=== PATIENT | male | born 1950 | race African-American/Black ===

== ENCOUNTER 2018-10-23 00:07 | Emergency (ER) | payer MEDICAID, OTHER ==
[~2018-10-23] VITALS: Ht 160 cm; Wt 72.6 kg
[~2018-10-23 00:07] MED LIST: VICODIN 5-5001 EACH PO
[2018-10-23] MEDS ORDERED: Morphine Sulfate 4mg/ml Inj (IV USE ONLY) IVP ONE (00:15)
[2018-10-23 00:20] VITALS: BP 135/77
--- NOTE | 2018-10-23 00:23 | Emergency Room Report ---
History of Present Illness General Chief Complaint: Multiple Trauma/Fall Source: Patient Present Illness HPI The patient is running for bus. He tripped and landed on his right side. He's unable to use his right arm at this time because of shoulder pain. He also banged his right knee. There is no loss of consciousness. The pain is significant and does not radiate. He has a slight amount of numbness in the hand. Patient rates the pain 7/10 and aching and worsened when he tries to move his arm. The patient is a dialysis patient. He has a vascular access in the left chest. His dialysis is Sunday. He still makes urine. No fevers, chills, weakness, nausea, vomiting, diarrhea or other joint pain. Allergies: Coded Allergies: PENICILLINS (Verified Allergy, Unknown, 06/20/11) Patient History Past Medical History: see triage record Past Surgical History: other - shunt Social History: Denies: smoking Social History Narrative at home Reviewed Nursing Documentation: PMH: Agreed; PSxH: Agreed Nursing Documentation-PMH Past Medical History: No History, Except For Hx Hypertension: Yes Hx Diabetes: Yes Review of Systems All Other Systems: negative except mentioned in HPI Physical Exam Vital Signs Date Time Temp Pulse Resp B/P (MAP) Pulse Ox O2 Delivery O2 Flow Rate FiO2 10/23/18 00:06 98.4 84 18 135/77 98 Room Air Sp02 EP Interpretation: reviewed, normal General Appearance: well appearing, no apparent distress, GCS 15 Head: normocephalic, atraumatic Eyes: bilateral eye normal inspection, bilateral eye PERRL, bilateral eye EOMI ENT: moist mucus membranes Neck: supple Respiratory: lungs clear, normal breath sounds, other - L shunt Cardiovascular #1: regular rate, rhythm Cardiovascular #2: 2+ radial (R) - Good capillary refill Gastrointestinal: normal inspection, normal bowel sounds, non tender, no mass, non-distended, overweight Musculoskeletal: back normal, gait/station normal, normal range of motion, swelling - Right shoulder, other - I knee without abrasion and ligaments stable 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 Right knee is also tender to palpation but range of motion is fairly normal crepitance and ligaments are stable. Neurologic: alert, oriented x3, motor strength/tone normal, DTRs symmetric, sensory intact, cerebellar normal, speech normal Psychiatric: mood/affect normal Skin: normal inspection, warm/dry Medical Decision Making Diagnostic Impression: Primary Impression: Fall Qualified Codes: W19.XXXA - Unspecified fall, initial encounter Additional Impressions: Shoulder fracture, right Qualified Codes: S42.91XA - Fracture of right shoulder girdle, part unspecified, initial encounter for closed fracture ESRD (end stage renal disease) on dialysis ER Course Dialysis patient with a ground-level fall onto his shoulder. Differential includes fracture, contusion versus strain. X-rays are indicated. Because patient is a dialysis patient we will also be evaluated with EKG, chest x-ray and labs. The patient will receive Zofran and morphine. EKG without injury. Chest x-ray no infiltrates. Shoulder film with fracture and humeral head. CBC and CMP unremarkable. Difficult IV stick. Patient requests pill. Percocet given. Sling applied by tech and myself. Position good and neurovasc normal. Numbness resolved. Patient stable for outpatient observation and treatment. Laboratory Tests Test 10/23/18 00:36 White Blood Count 11.6 K/UL (4.8-10.8) H Red Blood Count 3.46 M/UL (4.70-6.10) L Hemoglobin 10.0 G/DL (14.2-18.0) L Hematocrit 31.1 % (42.0-52.0) L Mean Corpuscular Volume 90 FL (80-99) Mean Corpuscular Hemoglobin 29.0 PG (27.0-31.0) Mean Corpuscular Hemoglobin Concent 32.2 G/DL (32.0-36.0) Red Cell Distribution Width 14.3 % (11.6-14.8) Platelet Count 151 K/UL (150-450) Mean Platelet Volume 9.3 FL (6.5-10.1) Neutrophils (%) (Auto) 77.7 % (45.0-75.0) H Lymphocytes (%) (Auto) 15.1 % (20.0-45.0) L Monocytes (%) (Auto) 5.1 % (1.0-10.0) Eosinophils (%) (Auto) 1.0 % (0.0-3.0) Basophils (%) (Auto) 1.0 % (0.0-2.0) Prothrombin Time 10.2 SEC (9.30-11.50) Prothrombin Time INR 1.0 (0.9-1.1) PTT 23 SEC (23-33) Sodium Level 141 MMOL/L (136-145) Potassium Level 4.9 MMOL/L (3.5-5.1) Chloride Level 103 MMOL/L (98-107) Carbon Dioxide Level 24 MMOL/L (21-32) Anion Gap 14 mmol/L (5-15) Blood Urea Nitrogen 49 mg/dL (7-18) H Creatinine 10.9 MG/DL (0.55-1.30) H Estimate Glomerular Filtration Rate 5.7 mL/min (>60) Glucose Level 170 MG/DL (74-106) H Calcium Level 8.3 MG/DL (8.5-10.1) L Total Bilirubin 0.2 MG/DL (0.2-1.0) Aspartate Amino Transferase (AST) 8 U/L (15-37) L Alanine Aminotransferase (ALT) 16 U/L (12-78) Alkaline Phosphatase 75 U/L (46-116) Total Protein 7.9 G/DL (6.4-8.2) Albumin 3.5 G/DL (3.4-5.0) Globulin 4.4 g/dL Albumin/Globulin Ratio 0.8 (1.0-2.7) L EKG Diagnostic Results Rate: normal Rhythm: NSR ST Segments: no acute changes Rhythm Strip Diag. Results EP Interpretation: yes Rhythm: NSR, no PVC's, no ectopy Chest X-Ray Diagnostic Results Chest X-Ray Diagnostic Results : Chest X-Ray Ordered: Yes # of Views/Limited/Complete: 1 View Indication: Other EP Interpretation: Yes Interpretation: no consolidation, no effusion, no pneumothorax, other - vasc access Impression: Other Electronically Signed by: Electronically signed by Lalito Taveras MD Other X-Ray Diagnostic Results Other X-Ray Diagnostic Results : X-Ray ordered: R shoulder # of Views/Limited Vs Complete: 3 View Indication: Pain EP Interpretation: Yes Interpretation: no dislocation, other - STS and fx Impression: Other Electronically Signed by: Electronically signed by Lalito Taveras MD Last Vital Signs Date Time Temp Pulse Resp B/P (MAP) Pulse Ox O2 Delivery O2 Flow Rate FiO2 10/23/18 02:20 98.2 72 18 140/77 98 Room Air Status: improved Disposition: HOME, SELF-CARE Condition: Improved Scripts Lactulose (LACTULOSE*) 20 Gm/30 Ml Solution 30 ML ORAL BID, #240 ML 0 Refills Prov: Lalito Taveras MD 10/23/18 Acetaminophen (Tylenol) 325 Mg Tablet 650 MG ORAL Q6H PRN for Prn Pain/Headache/Temp > 101, #20 TAB 0 Refills Prov: Lalito Taveras MD 10/23/18 Hydrocodone Bit/Acetaminophen 5-325* (NORCO 5-325*) 1 Each Tablet 1 TAB ORAL Q6H PRN for For Pain, #14 TAB 0 Refills Prov: Lalito Taveras MD 10/23/18 Lalito Taveras MD Oct 23, 2018 00:23
[2018-10-23 00:59] LABS: HEMATOCRIT 31.1 % (42.0-52.0); LYMPHOCYTES % (AUTO) 15.1 % (20.0-45.0); MEAN CORPUSCULAR VOLUME 90 FL (80-99); MONOCYTES % (AUTO) 5.1 % (1.0-10.0); NEUTROPHILS % (AUTO) 77.7 % (45.0-75.0); PLATELET COUNT 151 K/UL (150-450); RED BLOOD COUNT 3.46 M/UL (4.70-6.10); RED CELL DISTRIBUTION WIDTH 14.3 % (11.6-14.8); WHITE BLOOD COUNT 11.6 K/UL (4.8-10.8)
[2018-10-23] MEDS ORDERED: oxyCODONE HCL/Acetaminophen 5/325mg ORAL ONE (01:00)
[2018-10-23 01:01] LABS: ANION GAP 14 mmol/L (5-15); BLOOD UREA NITROGEN 49 mg/dL (7-18); CALCIUM 8.3 MG/DL (8.5-10.1); CARBON DIOXIDE 24 MMOL/L (21-32); CHLORIDE 103 MMOL/L (98-107); CREATININE 10.9 MG/DL (0.55-1.30); POTASSIUM 4.9 MMOL/L (3.5-5.1); SODIUM 141 MMOL/L (136-145)
[2018-10-23 01:06] LABS: ALANINE AMINOTRANSFERASE 16 U/L (12-78); ALBUMIN 3.5 G/DL (3.4-5.0); ALBUMIN/GLOBULIN RATIO 0.8 (1.0-2.7); ALKALINE PHOSPHATASE 75 U/L (46-116); ASPARTATE AMINO TRANSFERASE 8 U/L (15-37); BILIRUBIN,TOTAL 0.2 MG/DL (0.2-1.0)
[2018-10-23] MEDS ORDERED: NORCO 5-325 TA1 EACH ORAL (01:54)
[2018-10-23] MEDS ORDERED: TYLENOL325 MG ORAL (01:56)
[2018-10-23] MEDS ORDERED: LACTULOSE20 GM/301 ORAL (01:56)
[2018-10-23 02:20] VITALS: BP 140/77
--- NOTE | 2018-10-23 11:08 | Diagnostic Imaging Report ---
Indication: Right shoulder pain Findings: 3 views of the right shoulder were obtained. There is a fracture of the greater tuberosity of the humerus. Alignment is normal. IMPRESSION: Acute fracture involving the greater tuberosity humerus
--- NOTE | 2018-10-23 11:09 | Diagnostic Imaging Report ---
Indication: Chest pain Comparison: 06/25/2011 A single view chest radiograph was obtained. Findings: Left permacath is noted in good position. Lungs are clear. Cardiac mediastinal silhouette is normal. Bones are osteopenic. IMPRESSION: No acute disease.
--- NOTE | 2018-10-23 14:46 | Cardiology Report ---
APPROVED REPORT EKG Measurement Heart [id number] Normal sinus rhythm Normal ECG
== END 2018-10-23 02:10 | disposition home or self-care (01) ==
LOC: EDBD 00:07 → EMR 00:34
DX: S42.251A Displaced fracture of greater tuberosity of right humerus, initial encounter for closed fracture (principal); W01.0XXA Fall on same level from slipping, tripping and stumbling without subsequent striking against object, initial encounter; Y92.9 Unspecified place or not applicable; I12.0 Hypertensive chronic kidney disease with stage 5 chronic kidney disease or end stage renal disease; E11.22 Type 2 diabetes mellitus with diabetic chronic kidney disease; N18.6 End stage renal disease; Z99.2 Dependence on renal dialysis; Z88.0 Allergy status to penicillin
CPT/HCPCS: 36415; 71045; 80053; 85025; 85610; 85730; 93005; 96374; 96375; 99284

== ENCOUNTER 2019-04-07 13:28 | Emergency (ER) | payer MEDICARE, OTHER ==
[~2019-04-07] VITALS: Ht 170.2 cm; Wt 72.6 kg
[~2019-04-07 13:28] MED LIST changes: +LACTULOSE20 GM/301 ORAL; +NORCO 5-325 TA1 EACH ORAL; +TYLENOL325 MG ORAL
[2019-04-07 13:37] VITALS: BP 135/75
[2019-04-07] MEDS ORDERED: UNOBMED (13:37)
--- NOTE | 2019-04-07 13:38 | NUR ---
ED Nurse Note: Patient walked in to ER from home due to Rt shoulder pain 9/10 radiates to Rt arm. pt aao x4 and ambulatory. skin dry but clean and intact. calm and cooperative. per pt, he injured his Rt arm 2 months ago when he tripped and fell. pt had had a sling but no more. pain has not been resolved. no acute distress noted at this time.
--- NOTE | 2019-04-07 13:40 | NUR ---
ED Nurse Note: pt is dialysis pt. per pt, every M, W, F but he wouldn't go today because of arm pain. he will go tomorrow.
--- NOTE | 2019-04-07 13:49 | NUR ---
ED Nurse Note: ERMD at bedside.
--- NOTE | 2019-04-07 13:54 | NUR ---
ED Nurse Note: pt went down for x-ray in stable condition.
--- NOTE | 2019-04-07 13:55 | Emergency Room Report ---
History of Present Illness General Chief Complaint: Pain Source: Patient, Medical Record Present Illness HPI Patient is a 68 year old who presented for increased pain to the right shoulder. Patient is right hand dominant. Gradual onset of sharp pain worse with movement. No recent falls or trauma. No numbness distally. No prior shoulder injury. No fever. No IVDA. Prior shoulder injury 2 months ago. Did not follow up with orthopedics. Hx of ESRD Allergies: Coded Allergies: PENICILLINS (Verified Allergy, Unknown, 06/20/11) Patient History Past Medical History: see triage record Reviewed Nursing Documentation: PMH: Agreed; PSxH: Agreed Nursing Documentation-PMH Past Medical History: No History, Except For Hx Hypertension: Yes - high cholesterol Hx Diabetes: Yes Hx Dialysis: Yes - MWF Review of Systems All Other Systems: negative except mentioned in HPI Physical Exam Vital Signs Date Time Temp Pulse Resp B/P (MAP) Pulse Ox O2 Delivery O2 Flow Rate FiO2 04/07/19 13:35 98.4 83 18 135/75 (95) 95 Room Air General Appearance: well appearing, no apparent distress, alert, GCS 15, Chronically Ill Head: normocephalic, atraumatic ENT: hearing grossly normal, normal voice Neck: full range of motion, supple Respiratory: no respiratory distress, speaking full sentences Cardiovascular #1: normal inspection, regular rate, rhythm Gastrointestinal: normal inspection Musculoskeletal: no calf tenderness Neurologic: normal inspection, alert, oriented x3, responsive, deck supervisor III-XII nml as tested, normal gait Psychiatric: mood/affect normal Skin: no rash Medical Decision Making Diagnostic Impression: Primary Impression: Shoulder pain, right ER Course Patient presented for shoulder pain. Differential diagnosis included but was not limited to fracture, dislocation, ac separation, myocardial infarction, peptic ulcer disease, septic joint, Among others. Because of patient complexity, imaging studies were ordered. Patient was given pain medications.Patient was noted to have prior history of shoulder fracture. X-ray imaging of the right shoulder showed. Some degenerative changes without an acute fracture. Patient was noted to have prior history of greater tuberosity fracture to the shoulder which is healing well. Patient was advised to follow-up with his primary care physician for physical therapy. Patient will be discharged home. Is given prescription for acetaminophen Last Vital Signs Date Time Temp Pulse Resp B/P (MAP) Pulse Ox O2 Delivery O2 Flow Rate FiO2 04/07/19 13:37 98.4 78 18 135/75 95 Room Air Status: improved Disposition: HOME, SELF-CARE Condition: Stable Jose Kern MD Apr 07, 2019 13:55
--- NOTE | 2019-04-07 14:03 | NUR ---
ED Nurse Note: pt came back from x-ray in stable condition.
--- NOTE | 2019-04-07 14:06 | NUR ---
ED Nurse Note: ERMD at bedside reveiwing x-ray results.
[2019-04-07] MEDS ORDERED: ACETAMINOPHEN500 M3 ORAL (14:10)
[2019-04-07 14:15] VITALS: BP 126/78
--- NOTE | 2019-04-07 14:15 | NUR ---
ED Nurse Note: Pt cleared by health care Provider for discharge after pain patch applied. DC instructions/prescription was given and explained to pt and verbalized understanding of teachings. All medical deviecs such as ID band removed. Pt is AAO x4, ambulatory and left with all personal belongings.
--- NOTE | 2019-04-07 15:54 | Diagnostic Imaging Report ---
Indication: Right shoulder pain Technique: 3 views of the right shoulder Comparison: none Findings: No acute fractures. No dislocations. Joint spaces are preserved Impression: Negative
== END 2019-04-07 14:15 | disposition home or self-care (01) ==
LOC: EMR 14:05
DX: M25.511 Pain in right shoulder (principal); E11.22 Type 2 diabetes mellitus with diabetic chronic kidney disease; I12.0 Hypertensive chronic kidney disease with stage 5 chronic kidney disease or end stage renal disease; N18.6 End stage renal disease; Z99.2 Dependence on renal dialysis; E78.00 Pure hypercholesterolemia, unspecified; Z88.0 Allergy status to penicillin
CPT/HCPCS: 99283

== ENCOUNTER 2019-04-10 19:11 | Inpatient (IN) | payer OTHER ==
[~2019-04-10] VITALS: Ht 182.9 cm; Wt 74.3 kg
[2019-04-10 19:11] VITALS: BP 149/84
[~2019-04-10 19:11] MED LIST changes: +ACETAMINOPHEN500 M3 ORAL; +UNOBMED
--- NOTE | 2019-04-10 19:11 | NUR ---
ED Nurse Note: Dialysis patient BIBA with complaints of SOB x 1 week, worsening, Patient placed on BiPAP. setting 15/1 FiO2 50%.
--- NOTE | 2019-04-10 19:11 | NUR ---
ED Nurse Note: LAST DYALYSIS WAS SUNDAY.
[2019-04-10 20:07] LABS: BASOPHILS % (AUTO) 1.2 % (0.0-2.0); EOSINOPHILS % (AUTO) 1.6 % (0.0-3.0); HEMOGLOBIN 9.5 G/DL (14.2-18.0); MEAN CORPUSCULAR VOLUME 85 FL (80-99); MONOCYTES % (AUTO) 4.3 % (1.0-10.0); NEUTROPHILS % (AUTO) 84.9 % (45.0-75.0); PLATELET COUNT 144 K/UL (150-450); RED BLOOD COUNT 3.31 M/UL (4.70-6.10); RED CELL DISTRIBUTION WIDTH 12.4 % (11.6-14.8); WHITE BLOOD COUNT 12.6 K/UL (4.8-10.8)
--- NOTE | 2019-04-10 20:15 | NUR ---
ED Nurse Note: Patient tolerated blood draw well, IV started at right AC 22 G. Patient has yet to void, will continue to monitor.
[2019-04-10 21:01] LABS: SODIUM 143 MMOL/L (136-145)
[2019-04-10 21:03] LABS: BILIRUBIN,TOTAL 0.5 MG/DL (0.2-1.0); BLOOD UREA NITROGEN 91 mg/dL (7-18); CALCIUM 8.8 MG/DL (8.5-10.1); CARBON DIOXIDE 17 MMOL/L (21-32); CHLORIDE 107 MMOL/L (98-107); POTASSIUM 6.2 MMOL/L (3.5-5.1)
[2019-04-10 21:04] LABS: ALANINE AMINOTRANSFERASE 16 U/L (12-78); ALBUMIN 3.2 G/DL (3.4-5.0); ALBUMIN/GLOBULIN RATIO 0.6 (1.0-2.7); ALKALINE PHOSPHATASE 63 U/L (46-116); ASPARTATE AMINO TRANSFERASE 24 U/L (15-37); CREATINE KINASE 243 U/L (26-140)
[2019-04-10 21:21] LABS: CKMB 3.7 NG/ML (0.0-3.6)
--- NOTE | 2019-04-10 21:22 | NUR ---
ED Nurse Note: Patient currently resting on BIPAP, breathing is visually better, unlabored, even and without difficulty. Will continue to monitor.
--- NOTE | 2019-04-10 21:26 | Emergency Room Report ---
History of Present Illness General Chief Complaint: Dyspnea/Respdistress Source: Patient Present Illness HPI This patient has a history of end-stage renal disease and is dialysis dependent. He was undergoing an AV fistula placement this week. He states that he missed dialysis because he was having pain in his AV fistula site. This morning he woke up with shortness of breath. He denies recent illness. He denies cough or congestion. Denies fever or chills. He has no other complaints. Allergies: Coded Allergies: PENICILLINS (Verified Allergy, Unknown, 06/20/11) Patient History Past Medical History: see triage record, DM, renal disease, dialysis Social History: Denies: smoking, alcohol use, drug use Reviewed Nursing Documentation: PMH: Agreed; PSxH: Agreed Nursing Documentation-PMH Past Medical History: No History, Except For Hx Hypertension: Yes - high cholesterol Hx COPD: Yes Hx Diabetes: Yes Hx Dialysis: Yes - SHUNT ON LEFT CHEST . DAYS M/W/F Review of Systems All Other Systems: negative except mentioned in HPI Physical Exam Vital Signs Date Time Temp Pulse Resp B/P (MAP) Pulse Ox O2 Delivery O2 Flow Rate FiO2 04/10/19 19:00 90 24 149/84 (105) 96 Non-Rebreather 15.0 04/10/19 20:01 50 Sp02 EP Interpretation: reviewed, abnormal General Appearance: alert, GCS 15, non-toxic, mild distress Head: normocephalic, atraumatic Eyes: bilateral eye normal inspection, bilateral eye PERRL ENT: hearing grossly normal, normal pharynx, no angioedema, normal voice Neck: full range of motion, supple/symm/no masses Respiratory: chest non-tender, respiratory distress, accessory muscle use, crackles, rales Cardiovascular #1: regular rate, rhythm, no edema Gastrointestinal: normal bowel sounds, non tender, soft, no guarding, no rebound, distended Rectal: deferred Musculoskeletal: back normal, gait/station normal, normal range of motion, non- tender Neurologic: alert, oriented x3, responsive, motor strength/tone normal, sensory intact, speech normal Psychiatric: judgement/insight normal, memory normal, mood/affect normal, no suicidal/homicidal ideation Skin: no rash Medical Decision Making Diagnostic Impression: Primary Impression: Pulmonary edema Additional Impressions: Fluid overload Missed dialysis Elevated troponin Hyperkalemia ER Course This patient presents with pulmonary edema and respiratory distress secondary to fluid overload. He missed dialysis today. He is also found to have an elevated potassium at 6.2. Troponin is also elevated but is most likely a demand ischemia related to not getting dialysis. He has no EKG findings other than sinus tachycardia. He was given Lasix IV because he stated that he does make some urine. The dialysis company [facility] was contacted repeatedly for emergency dialysis. The patient was in respiratory distress and was placed on BiPAP. This did relieve his work of breathing. He was given insulin, glucose, albuterol and calcium gluconate for his hyperkalemia. The patient was admitted to the ICU stepdown unit for emergency dialysis and further evaluation and treatment and monitoring. This patient is critically ill. This patient required complex medical decision- making, aggressive intervention, extensive laboratory workup and monitoring. Critical care time: 40 minutes. Laboratory Tests Test 04/10/19 19:45 White Blood Count 12.6 K/UL (4.8-10.8) H Red Blood Count 3.31 M/UL (4.70-6.10) L Hemoglobin 9.5 G/DL (14.2-18.0) L Hematocrit 28.0 % (42.0-52.0) L Mean Corpuscular Volume 85 FL (80-99) Mean Corpuscular Hemoglobin 28.8 PG (27.0-31.0) Mean Corpuscular Hemoglobin Concent 34.1 G/DL (32.0-36.0) Red Cell Distribution Width 12.4 % (11.6-14.8) Platelet Count 144 K/UL (150-450) L Mean Platelet Volume 7.0 FL (6.5-10.1) Neutrophils (%) (Auto) 84.9 % (45.0-75.0) H Lymphocytes (%) (Auto) 8.0 % (20.0-45.0) L Monocytes (%) (Auto) 4.3 % (1.0-10.0) Eosinophils (%) (Auto) 1.6 % (0.0-3.0) Basophils (%) (Auto) 1.2 % (0.0-2.0) Sodium Level 143 MMOL/L (136-145) Potassium Level 6.2 MMOL/L (3.5-5.1) *H Chloride Level 107 MMOL/L (98-107) Carbon Dioxide Level 17 MMOL/L (21-32) L Blood Urea Nitrogen 91 mg/dL (7-18) H Creatinine 20.0 MG/DL (0.55-1.30) H Estimate Glomerular Filtration Rate 2.8 mL/min (>60) Glucose Level 147 MG/DL (74-106) H Calcium Level 8.8 MG/DL (8.5-10.1) Total Bilirubin 0.5 MG/DL (0.2-1.0) Aspartate Amino Transferase (AST) 24 U/L (15-37) Alanine Aminotransferase (ALT) 16 U/L (12-78) Alkaline Phosphatase 63 U/L (46-116) Total Creatine Kinase 243 U/L (26-140) H Creatine Kinase MB 3.7 NG/ML (0.0-3.6) H Creatine Kinase MB Relative Index 1.5 Troponin I 0.175 ng/mL (0.000-0.056) Total Protein 8.2 G/DL (6.4-8.2) Albumin 3.2 G/DL (3.4-5.0) L Globulin 5.0 g/dL Albumin/Globulin Ratio 0.6 (1.0-2.7) L EKG Diagnostic Results Rate: tachycardiac Rhythm: other - S.tachycardia ST Segments: no acute changes Rhythm Strip Diag. Results EP Interpretation: yes Rate: 90's Rhythm: NSR, no PVC's, no ectopy Chest X-Ray Diagnostic Results Chest X-Ray Diagnostic Results : Chest X-Ray Ordered: Yes # of Views/Limited/Complete: 1 View Indication: Shortness of Breath EP Interpretation: Yes Interpretation: other - Diffuse patchy opacities Impression: Other - See above Electronically Signed by: Guera Chaney DO Last Vital Signs Date Time Temp Pulse Resp B/P (MAP) Pulse Ox O2 Delivery O2 Flow Rate FiO2 04/10/19 20:06 102 22 94 Bi-Pap 50 04/10/19 19:11 15.0 04/10/19 19:00 149/84 (105) Status: improved Disposition: ADMITTED INPATIENT Condition: Critical Guera Chaney DO Apr 10, 2019 21:26
--- NOTE | 2019-04-10 21:27 | NUR ---
Spoke with Love (Insurance), gave all necessary information, Advised that we call [facility] three times with no responce. Love states she will work on it and call us back.
[2019-04-10] MEDS ORDERED: Albuterol ud Inhalation HHN ONE (21:30)
[2019-04-10] MEDS ORDERED: Insulin Human Regular 100units/ml 3ml IV ONE (21:30)
[2019-04-10] MEDS ORDERED: Calcium Gluconate 10% 1 GM in NS 110 ML IVPB ONE (21:30)
--- NOTE | 2019-04-10 21:32 | NUR ---
Dr.Tirmizi rose, speaking with .
--- NOTE | 2019-04-10 21:39 | NUR ---
did not accept patient(does not take Alpine)-will admit to .
--- NOTE | 2019-04-10 21:47 | NUR ---
spoke with (patient states thats his doctor)- knows the patient but will not accept [place],
--- NOTE | 2019-04-10 21:52 | NUR ---
spoke with - admit to .
[2019-04-10] MEDS ORDERED: HYDROcodone/Acetamin 5/325 tab ORAL PRN (22:00)
[2019-04-10] MEDS ORDERED: Nitroglycerin 2% oint pkt TOPIC ONE (22:00)
--- NOTE | 2019-04-10 22:12 | NUR ---
Dr.R.Lang rose, is service station attendant, speaking with .
[2019-04-10] MEDS ORDERED: Sodium Polystyrene Sulfonate 15gm Powder ORAL ONE (22:15)
--- NOTE | 2019-04-10 22:22 | NUR ---
ED Nurse Note: Patient resting comfortably, tolerating BiPAP machine readily.
--- NOTE | 2019-04-10 23:06 | NUR ---
ED Nurse Note: cALLED AND GAVE REPORT TO SREEKANTH SLOAN
[2019-04-10 23:23] VITALS: BP 158/72
--- NOTE | 2019-04-10 23:50 | NUR ---
ED Nurse Note: Currently waiting for RT and student recruiter for transport to floor, both have been notified twice of impending transport.
--- NOTE | 2019-04-11 00:08 | NUR ---
ED Nurse Note: Patient transported to floor without incident.
[2019-04-11 00:10] VITALS: BP 147/73
--- NOTE | 2019-04-11 00:10 | NUR ---
NURSE NOTES: Pt arrived with britney dave, and alberto Waters SIDE SEAM TENDER and RT ivana. pt remains stable. pt is alert and oriented times 4 and is able to follow commands. pt vital signs remains stable. pt is on engine monitor showing NSR, no signs symptoms of distress noted. pt was quickly placed on a bipap after transfer, satting at 100%, no signs symptoms of distress. pt bed is low, locked, armed, bed rails up times 3, call light within reach. will proceed with plan of care.
[2019-04-11 04:00] VITALS: BP 143/78
--- NOTE | 2019-04-11 07:00 | NUR ---
NURSE NOTES: FOR HEMODIALYSIS,CALLED [facility] SPOKE TO JANAE.
--- NOTE | 2019-04-11 07:20 | NUR ---
HAND-OFF: Report given to Araceli SLOAN ICU/ SDU. Pt remains stable.
[2019-04-11 08:00] VITALS: BP 151/87
--- NOTE | 2019-04-11 08:01 | NUR ---
NURSE NOTES: Pt received from [facility], awake and alert oriented x4.Afebrile with no acute distress,on BIPAP at 15/5 40% fio2. Peripheral line RFA infiltrate, line discontinue.Dialysis today, seen by DR Young. Left subclavian eli cath and MARIELLE fistula .Able to self repositioned.Abdomen soft and rounded.Will continue to monitor
[2019-04-11] MEDS: Lactulose 20gm/30ml UDC ORAL SCH ×2 (08:30→18:31)
[2019-04-11] MEDS: Heparin 5000 units/ml inj SUBQ SCH ×2 (08:35→21:00)
[2019-04-11] MEDS ORDERED: Pantoprazole Inj IVP SCH (09:00)
[2019-04-11] MEDS ORDERED: Cathflo Alteplase 2mg Inj INJ SCH (10:00)
--- NOTE | 2019-04-11 11:00 | History and Physical Report ---
DATE OF ADMISSION: 04/10/2019 CHIEF COMPLAINT: CHF. HISTORY OF PRESENT ILLNESS: The patient is a 68-year-old male. He has a history of end-stage renal disease, on hemodialysis for the last three years. He recently underwent placement of an AV fistula. He does have a PermCath. He apparently missed his hemodialysis on Sunday because he felt tired and weak. On the day of admission here, he became progressively more short of breath and dyspneic, presented to the emergency room. He was noted to be in pulmonary edema and CHF. He has been placed on BiPAP and is now admitted to a monitored bed. PAST MEDICAL HISTORY: As above. PAST SURGICAL HISTORY: Includes a history of left upper extremity AV fistula. CURRENT MEDICATIONS: Reconciled and reviewed. ALLERGIES: Include penicillin. FAMILY HISTORY: Noncontributory. SOCIAL HISTORY: There is no known history of tobacco, ethanol, or drugs. REVIEW OF SYSTEMS: GENERAL: No fevers or chills. HEENT: No headaches or visual changes. CARDIOPULMONARY: No chest pain. Positive shortness of breath. GASTROINTESTINAL: No nausea or vomiting. GENITOURINARY: No urgency or frequency. MUSCULOSKELETAL: No joint pain or swelling. NEUROLOGIC: No evidence of seizures. PHYSICAL EXAMINATION: VITAL SIGNS: Temperature 98.3, pulse 84, respirations 25, and blood pressure 143/78. GENERAL: The patient is well developed, in no apparent distress. HEART: Regular rate and rhythm. LUNGS: Diminished breath sounds. ABDOMEN: Soft, nontender, and nondistended. EXTREMITIES: Without clubbing, cyanosis, or edema. There is a dressing on the left upper extremity. There is no audible bruit noted. There is a PermCath noted in the chest. LABORATORY DATA: White count was 12, hemoglobin 9, hematocrit 28. Sodium 143, potassium 6.2, chloride 107, bicarb 17, BUN 91, and creatinine 20. Troponin was 0.175. EKG showed normal sinus rhythm without any acute ST-T wave changes. ASSESSMENT: This is a 68-year-old male with a history of hypertension, diabetes, and end-stage renal disease, admitted with complaints of pulmonary edema secondary to missed dialysis. He has an elevated troponin I suspect secondary to his volume overload in combination with his renal failure. PLAN: Continue BiPAP. Urgent hemodialysis has been ordered. We will trend troponins, topical nitrates. Continue outpatient diabetic and cardiac regimen. Jose Luis Young M.D. DR: TERENCE JOB#: [id number] CC:
[2019-04-11] MEDS: NovoLOG Insulin Flexpen SUBQ SCH ×3 (11:30→21:00)
--- NOTE | 2019-04-11 11:45 | Diagnostic Imaging Report ---
Indication: Shortness of breath Technique: One view of the chest Comparison: 10/23/2018 Findings: There are fairly extensive bilateral patchy airspace opacities now present. There is a small left pleural effusion. The heart size is normal. There is a tunneled dialysis catheter again noted Impression: Bilateral extensive patchy infiltrates versus edema.
[2019-04-11 12:00] VITALS: BP 161/88
--- NOTE | 2019-04-11 12:00 | NUR ---
NURSE NOTES: Dialysis done and 3l out, no acute distress, will continue to monitor.Able to self repositioned and consumed 100% at lunch
[2019-04-11] MEDS: Metoprolol Succinate XL 50mg tab ORAL SCH (13:08)
[2019-04-11] MEDS: Losartan 50mg tab ORAL SCH (13:08)
[2019-04-11] MEDS: Aspirin EC 81mg tab ORAL SCH (13:12)
--- NOTE | 2019-04-11 14:36 | NUR ---
CASE MANAGEMENT:REVIEW 68 YR OLD MALE BIBA FROM HOME CC: SOB PMH: MISSED DIALYSIS SI: FLUID OVERLOAD. PULMONARY EDEMA. HYPERKALEMIA 98.5 90 24 149/84 96% ON 15L NON REBREATHER WBC+12.6 K+6.2 BUN+91 CR+20.0 IS: PLACED ON BIPAP @ 50% FIO2 IV LASIX IV INSULIN IV D50W ALBUTEROL HHN IV CA GLUC CHEST XRAY : to step down unit INTERQUAL CRITERIA MET
[2019-04-11 16:00] VITALS: BP 145/77
--- NOTE | 2019-04-11 16:02 | NUR ---
NURSE NOTES: Seen by Dr Lara, with follow up with new order.No acute distress, kept clean and dry, partial bath given.Call light within easy reach,will continue to monitor.Patient oliguric and uses urinal 200cc out
--- NOTE | 2019-04-11 17:45 | Consultation ---
DATE OF CONSULTATION: 04/11/2019 CONSULTING PHYSICIAN: Deonte Lara M.D. REFERRING PHYSICIAN: Jose Luis Young M.D. REASON FOR CONSULTATION: End-stage renal disease and pulmonary edema. HISTORY OF PRESENT ILLNESS: The patient is a 68-year-old male with end-stage renal disease, [facility]. He has had surgery on Sunday this week for I guess revision of AV fistula left arm and his last dialysis was Sunday. He comes in night having missed his dialysis treatment on Sunday with shortness of breath and pulmonary edema, and required BiPAP in the emergency room. The patient denies any chest pain or history of chronic congestive heart failure. He is only a fair historian. PAST SURGICAL HISTORY: AV fistula, left arm and dialysis PermCath. ALLERGIES: Penicillin. HABITS: He has never been a smoker. Alcohol, social. Drugs, none. SOCIAL HISTORY: He lives alone, retired, disabled. SYSTEM REVIEW: HEAD, EYES, EARS, NOSE, AND THROAT: Vision and hearing is good. ENDOCRINE: Long-standing diabetes. No thyroid disease. PULMONARY: No asthma, TB, or chronic cough. CARDIAC: See history of present illness. GASTROINTESTINAL: No GI bleeding, ulcers or abdominal pain. GENITOURINARY: No dysuria or hematuria. NEUROLOGIC: No CVA, syncope or seizures. MUSCULOSKELETAL: Mild generalized arthritis. PHYSICAL EXAMINATION: GENERAL: The patient is alert man, chronically ill-appearing. VITAL SIGNS: Temperature 97.9, pulse 100, and blood pressure 151/87. Pulse oximetry 98%. HEAD, EYES, EARS, NOSE, AND THROAT: There is mild periorbital edema. Sclerae are nonicteric. Throat clear. NECK: No adenopathy. LUNGS: Clear. HEART: Regular rhythm. There is an apical S4. I hear no murmur. ABDOMEN: Soft without organomegaly or masses. EXTREMITIES: Show 1+ edema. AV fistula in the left upper arm with a good thrill. NEUROLOGIC: He is alert and oriented. Cranial nerves are intact. No focal findings. He has difficulty moving about in the bed. PERTINENT LABORATORY DATA: White count 12.6, hemoglobin 9.5. Sodium 143, potassium 6.2, chloride 107, CO2 17, BUN 91, and creatinine 20. Troponin 0.175 with a total CK of 243. EKG shows nonspecific ST-T wave abnormalities. Albumin is low at 3.2. IMPRESSION: 1. End-stage renal disease, status post missed dialysis treatment. 2. Congestive heart failure, likely acute on chronic, likely diastolic dysfunction with pulmonary edema. 3. Hyperkalemia. 4. Azotemia. 5. Troponin bump likely from his renal failure and congestive heart failure, possible ischemia. PLAN: The patient will have serial dialysis for fluid removal and dietary advice, and we will reassess all his medications for end-stage renal disease. Thank you so much for allowing . Deonte Lara M.D. DR: CAROLINA JOB#: [id number] CC:
--- NOTE | 2019-04-11 18:05 | NUR ---
NURSE NOTES: Adls done, consumed 100% at diner. Call light within easy reach, kept clean dry and comfortable
--- NOTE | 2019-04-11 19:45 | NUR ---
NURSE NOTES: received pt from Araceli SLOAN. pt is awake and AOx4. 2L NC is on and O2sat is 97%, pt is resting on the bed, bed is lowest position, alarmed, and locked. Right Iv site 22G is intact, clean, and patent. no dysrythmia reporte from previous shift. call light within reach. will continue to monitor with plan of care.
[2019-04-11 20:00] VITALS: BP 145/71
--- NOTE | 2019-04-11 20:05 | NUR ---
HAND-OFF: Report given to NATHALIA Rosario.
[2019-04-12] VITALS: BP 151/95
[2019-04-12] MEDS: Dyna-Hex 2% Top Sol 2oz TOPIC SCH ×2 (03:35→20:02)
[2019-04-12 04:00] VITALS: BP 146/90
--- NOTE | 2019-04-12 04:20 | NUR ---
NURSE NOTES: called [facility] dialysis company to confirm about 19 dialysis appointment, confirmed with Oscar SLOAN.
[2019-04-12 05:36] LABS: BASOPHILS % (AUTO) 0.6 % (0.0-2.0); EOSINOPHILS % (AUTO) 2.3 % (0.0-3.0); HEMATOCRIT 28.7 % (42.0-52.0); HEMOGLOBIN 9.2 G/DL (14.2-18.0); LYMPHOCYTES % (AUTO) 17.5 % (20.0-45.0); MEAN CORPUSCULAR VOLUME 89 FL (80-99); MONOCYTES % (AUTO) 5.4 % (1.0-10.0); NEUTROPHILS % (AUTO) 74.2 % (45.0-75.0); PLATELET COUNT 168 K/UL (150-450); RED BLOOD COUNT 3.23 M/UL (4.70-6.10); RED CELL DISTRIBUTION WIDTH 13.3 % (11.6-14.8); WHITE BLOOD COUNT 8.7 K/UL (4.8-10.8)
[2019-04-12 05:54] LABS: ANION GAP 18 mmol/L (5-15); BLOOD UREA NITROGEN 65 mg/dL (7-18); CALCIUM 9.1 MG/DL (8.5-10.1); CARBON DIOXIDE 22 MMOL/L (21-32); CHLORIDE 104 MMOL/L (98-107); SODIUM 143 MMOL/L (136-145)
[2019-04-12] MEDS ORDERED: Heparin Sod 1000 units/ml 10ml IV PRN ×2 (06:00→21:00)
[2019-04-12] MEDS ORDERED: Heparin Sod 1000 units/ml 10ml IV SCH (06:15)
[2019-04-12] MEDS: NovoLOG Insulin Flexpen SUBQ SCH ×4 (06:28→20:39)
[2019-04-12] MEDS ORDERED: GlipiZIDE 5mg tab ORAL SCH (06:30)
--- NOTE | 2019-04-12 07:30 | NUR ---
NURSE NOTES: Received patient from NATHALIA oRsario. Patient alert and oriented and sitting up. Patient denies pain or discomfort. Patient on 2L NC. Patient has right wrist 22G PIV and left subclavian permicath for dialysis. Patient has dialysis scheduled for today. [facility] called and notified by previous shift. Patient labs within normal limits this morning. Patient pulled up at this time. Addendum: 04/12/19 at 0871 by Ju Oscar RN Patient showing sinus rhythm on the ekg monitor tech. Dr Young rounded on the patient. Received order to transfer patient to telemetry.
--- NOTE | 2019-04-12 07:49 | NUR ---
HAND-OFF: Report given to Bertrand SLOAN., pt is awake, stable, and no SOB noted.
[2019-04-12 08:00] VITALS: BP 167/80
--- NOTE | 2019-04-12 08:19 | General Progress Note ---
Assessment/Plan Problem List: (1) Pulmonary edema ICD Codes: J81.1 - Chronic pulmonary edema SNOMED: 77004736 (2) Fluid overload ICD Codes: E87.70 - Fluid overload, unspecified SNOMED: 37221554, 609488097, 549289766 (3) Missed dialysis SNOMED: 399861600 Status: stable, progressing Assessment/Plan: Hd with uf antiplt rx o2 Subjective ROS Limited/Unobtainable: No Constitutional: Reports: weakness HEENT: Reports: no symptoms Cardiovascular: Reports: no symptoms Respiratory: Reports: shortness of breath Gastrointestinal/Abdominal: Reports: no symptoms Neurologic/Psychiatric: Reports: no symptoms Endocrine: Reports: no symptoms Hematologic/Lymphatic: Reports: no symptoms Allergies: Coded Allergies: PENICILLINS (Verified Allergy, Unknown, 06/20/11) All Systems: reviewed and negative except above Subjective off bipap. no CP. still with sob. Objective Last 24 Hour Vital Signs Date Time Temp Pulse Resp B/P (MAP) Pulse Ox O2 Delivery O2 Flow Rate FiO2 04/12/19 04:00 98.1 92 18 146/90 (108) 98 04/12/19 04:00 2.0 04/12/19 04:00 Nasal Cannula 2.0 04/12/19 03:50 91 04/12/19 00:00 97.9 90 19 151/95 (113) 98 04/12/19 00:00 2.0 04/12/19 00:00 Nasal Cannula 2.0 04/11/19 23:32 101 04/11/19 20:00 96.8 91 18 145/71 (95) 97 04/11/19 20:00 2.0 04/11/19 20:00 97 Nasal Cannula 2.0 28 04/11/19 20:00 Nasal Cannula 2.0 04/11/19 19:50 91 04/11/19 18:33 88 145/87 04/11/19 16:00 97.8 87 20 145/77 (99) 98 04/11/19 16:00 2.0 04/11/19 16:00 92 04/11/19 16:00 Bi-pap 04/11/19 13:08 98 161/88 04/11/19 13:08 98 161/88 04/11/19 13:08 161/88 04/11/19 12:00 Bi-pap 04/11/19 12:00 97.7 98 24 161/88 (112) 98 04/11/19 12:00 40 04/11/19 12:00 89 Intake and Output 04/11/19 04/12/19 18:59 06:59 Intake Total 340 ml Output Total 3200 ml Balance -2860 ml Intake Oral 340 ml Output Urine Total 200 ml Hemodialysis UF 3000 ml # Voids 1 # Bowel Movements 1 4 Laboratory Tests 04/11/19 10:00: Hemoglobin A1c 6.4H 04/12/19 03:48: White Blood Count 8.7, Red Blood Count 3.23L, Hemoglobin 9.2L, Hematocrit 28.7L , Mean Corpuscular Volume 89, Mean Corpuscular Hemoglobin 28.5, Mean Corpuscular Hemoglobin Concent 32.1, Red Cell Distribution Width 13.3, Platelet Count 168, Mean Platelet Volume 7.3, Neutrophils (%) (Auto) 74.2, Lymphocytes (% ) (Auto) 17.5L, Monocytes (%) (Auto) 5.4, Eosinophils (%) (Auto) 2.3, Basophils (%) (Auto) 0.6, Sodium Level 143, Potassium Level 4.0, Chloride Level 104, Carbon Dioxide Level 22, Anion Gap 18H, Blood Urea Nitrogen 65H, Creatinine 16.0H, Estimat Glomerular Filtration Rate 3.6, Glucose Level 131H, Calcium Level 9.1, Troponin I 0.105H Height (Feet): 6 Height (Inches): 0.00 Weight (Pounds): 163 General Appearance: WD/WN, alert Neck: supple Cardiovascular: normal rate Respiratory/Chest: rhonchi - bilaterally Abdomen: normal bowel sounds, non tender, soft, no organomegaly Edema: no edema noted Arm (L), no edema noted Arm (R), no edema noted Leg (L), no edema noted Leg (R), no edema noted Pedal (L), no edema noted Pedal (R), no edema noted Generalized Jose Luis Young MD Apr 12, 2019 08:19
[2019-04-12] MEDS: Lactulose 20gm/30ml UDC ORAL SCH ×3 (09:00→17:57)
--- NOTE | 2019-04-12 09:00 | NUR ---
NURSE NOTES: Patient receiving hemodialysis at this time. Cardiac medications and heparin held for procedure. Medication will be administered after dialysis. Addendum: 04/12/19 at 1000 by Ju Oscar RN Protonix IV also held due to dialysis. Will be administered post dialysis.
[2019-04-12] MEDS: Aspirin EC 81mg tab ORAL SCH (09:11)
[2019-04-12] MEDS: Metoprolol Succinate XL 50mg tab ORAL SCH (11:14)
[2019-04-12] MEDS: Losartan 50mg tab ORAL SCH (11:15)
[2019-04-12] MEDS: Heparin 5000 units/ml inj SUBQ SCH ×2 (11:19→20:38)
[2019-04-12 12:00] VITALS: BP 149/78
--- NOTE | 2019-04-12 12:00 | NUR ---
NURSE NOTES: Patient resting comfortably with no sign or complaint of acute distress. Patient lunch tray given. Vital signs stable. Sinus rhythm on the surveillance system monitor. All IV's flushed and patent. Peripheral pulses present. Patient bed in low position with bed alarm on and call light in reach. Patient finished with dialysis with 3L out. Will continue to monitor.
--- NOTE | 2019-04-12 13:10 | Cardiology Report ---
APPROVED REPORT EKG Measurement Heart [id number] Sinus tachycardia Otherwise normal ECG
--- NOTE | 2019-04-12 14:17 | NUR ---
CASE MANAGEMENT: REVIEW 04/12/2019 SI: FLUID OVERLOAD. PULMONARY EDEMA. HYPERKALEMIA T 97.9 HR 89 RR 18 B/P 149/78 SATS 100% ON 2L/NC BUN 65 CR 16 GLU 131 TROPONIN 0.105 IS: GLUCOTROL PO QAM LACTULOSE PO BID NORVASC PO BID COZAAR PO QD TOPROL PO QD ASA PO QD PROTONIX PO QD INSULIN ASPART SUBQ AC/HS RENVELA PO TID : SDU
--- NOTE | 2019-04-12 14:21 | NUR ---
INSURANCE CLINICALS AND REVIEWS FAXED TO BATCHER OPERATOR: CECELIA #[phone] FAX#[phone] REVIEWS/CLINICALS
--- NOTE | 2019-04-12 15:30 | NUR ---
NURSE NOTES: Patient complaining of chest pain. EKG done with result of normal sinus rhythm. Dilaudid given. Dr Young notified via telephone message. Awaiting call back.
[2019-04-12 16:00] VITALS: BP 141/87
--- NOTE | 2019-04-12 16:00 | NUR ---
NURSE NOTES: Received call back from Dr Young. Received order for nitro sublingual. Will administer as needed. Patient still complaining of chest pain 02/05.
--- NOTE | 2019-04-12 16:10 | Nephrology Progress Note ---
Assessment/Plan Problem List: (1) Gait abnormality (2) CHF exacerbation (3) ESRD (end stage renal disease) on dialysis (4) Hyperkalemia (5) Pulmonary edema (6) Missed dialysis (7) Fluid overload Plan feels better , HD 04/12 -3000 , weak and difficulty transferring and walking, needs to mobilize Subjective Constitutional: Reports: weakness HEENT: Reports: no symptoms Genitourinary: Reports: no symptoms Neurologic/Psychiatric: Reports: weakness Objective Objective Last 24 Hour Vital Signs Date Time Temp Pulse Resp B/P (MAP) Pulse Ox O2 Delivery O2 Flow Rate FiO2 04/12/19 15:58 84 04/12/19 12:00 2.0 04/12/19 12:00 Nasal Cannula 2.0 04/12/19 12:00 84 04/12/19 12:00 97.9 89 18 149/78 (101) 100 04/12/19 12:00 Nasal Cannula 2.0 04/12/19 11:15 86 149/78 04/12/19 11:15 149/78 04/12/19 11:14 86 149/78 04/12/19 09:58 99 Nasal Cannula 2.0 04/12/19 09:06 88 04/12/19 08:00 Nasal Cannula 2.0 04/12/19 08:00 Nasal Cannula 2.0 04/12/19 08:00 2.0 04/12/19 08:00 97.2 88 18 167/80 (109) 100 04/12/19 04:00 98.1 92 18 146/90 (108) 98 04/12/19 04:00 2.0 04/12/19 04:00 Nasal Cannula 2.0 04/12/19 03:50 91 04/12/19 00:00 97.9 90 19 151/95 (113) 98 04/12/19 00:00 2.0 04/12/19 00:00 Nasal Cannula 2.0 04/11/19 23:32 101 04/11/19 20:00 96.8 91 18 145/71 (95) 97 04/11/19 20:00 2.0 04/11/19 20:00 97 Nasal Cannula 2.0 28 04/11/19 20:00 Nasal Cannula 2.0 04/11/19 19:50 91 04/11/19 18:33 88 145/87 Intake and Output 04/11/19 04/12/19 19:00 07:00 Intake Total 340 ml Output Total 3200 ml Balance -2860 ml Intake Oral 340 ml Output Urine Total 200 ml Hemodialysis UF 3000 ml # Voids 1 # Bowel Movements 1 4 Laboratory Tests 04/12/19 03:48: White Blood Count 8.7, Red Blood Count 3.23L, Hemoglobin 9.2L, Hematocrit 28.7L , Mean Corpuscular Volume 89, Mean Corpuscular Hemoglobin 28.5, Mean Corpuscular Hemoglobin Concent 32.1, Red Cell Distribution Width 13.3, Platelet Count 168, Mean Platelet Volume 7.3, Neutrophils (%) (Auto) 74.2, Lymphocytes (% ) (Auto) 17.5L, Monocytes (%) (Auto) 5.4, Eosinophils (%) (Auto) 2.3, Basophils (%) (Auto) 0.6, Sodium Level 143, Potassium Level 4.0, Chloride Level 104, Carbon Dioxide Level 22, Anion Gap 18H, Blood Urea Nitrogen 65H, Creatinine 16.0H, Estimat Glomerular Filtration Rate 3.6, Glucose Level 131H, Calcium Level 9.1, Troponin I 0.105H Height (Feet): 6 Height (Inches): 0.00 Weight (Pounds): 163 General Appearance: no apparent distress, alert EENT: normal ENT inspection Neck: normal alignment Cardiovascular: normal rate, regular rhythm Respiratory/Chest: lungs clear Abdomen: non tender Extremities: other - no edema 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
[2019-04-12] MEDS ORDERED: Nitroglycerin Subl 0.4mg tab SL PRN ×2 (16:45→21:00)
--- NOTE | 2019-04-12 19:20 | NUR ---
NURSE NOTES: Pt report received from Ju Moreno ICU SDU RN. pt remains stable. vital signs is stable. pt monitor and storage bin tender shows NSR, no abnormalities noted cardiac jacinto. pt is sating at 99% on room air, no abnormalities noted resp jacinto. pt bed is low and locked, armed bed rails up times 3, call light within reach. will continue plan of care.
--- NOTE | 2019-04-12 19:30 | NUR ---
HAND-OFF: Report given to NATHALIA Posey. Patient VS stable and denies pain.
[2019-04-12 20:00] VITALS: BP 143/79
--- NOTE | 2019-04-12 20:58 | NUR ---
HAND-OFF: Report/ transfer given to Kendall Forman RN TELE. Pt remains stable. pt transfered with all belongings.
--- NOTE | 2019-04-12 21:10 | NUR ---
NURSE NOTES: Received report from NATHALIA Posey. Patient is awake lying semi-haskins's; resting comfortably. No signs of acute distress noted; denies pain at this time. AOx4; able to make needs known. Checked IV site; patent and flushed. No erythema, bleeding, or infiltration noted. Right chest permacath in place. Belongings list checked with transferring RN. Bed at lowest position, brakes on, siderails up x3. Call light within reach. Will continue to monitor. Addendum: 04/13/19 at 0713 by GREGORIO ANDERSON RN RN Left chest permacath in place. Left AV shunt also noted.
[2019-04-13] VITALS: BP 138/85
--- NOTE | 2019-04-13 03:33 | NUR ---
NURSE NOTES: Patient is asleep lying semi-haskins's; resting comfortably. No signs of acute distress or pain noted at this time. On 2L nasal cannula.
[2019-04-13 04:00] VITALS: BP 149/87
--- NOTE | 2019-04-13 04:00 | NUR ---
NURSE NOTES: Per Cher from Microbiology, patient is positive for VRE rectum. Will inform Dr. Young.
[2019-04-13] MEDS: GlipiZIDE 5mg tab ORAL SCH (06:10)
[2019-04-13] MEDS: NovoLOG Insulin Flexpen SUBQ SCH ×4 (06:10→20:31)
--- NOTE | 2019-04-13 06:14 | NUR ---
NURSE NOTES: Notified Dr. Young regarding patient's positive VRE rectum result. Awaiting callback for any further orders.
--- NOTE | 2019-04-13 07:10 | NUR ---
NURSE NOTES: Received report from NATHALIA Benjamin. Patient is awake, lying semi-haskins's, resting comfortably. No signs of acute distress noted; denies pain at this time. AOx4. patient is breathing even and unlabored. 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 Checked IV site; patent and flushed. No erythema, bleeding, or infiltration noted. Left chest PermCath in place. Patient is on left arm precaution for an left AV shunt. Bed at lowest position, brakes on, side rails up x3. Call light within reach. Will continue to monitor.
--- NOTE | 2019-04-13 07:13 | NUR ---
HAND-OFF: Report given to NATHALIA Adams. Patient is awake lying semi-haskins's; resting comfortably. On 2L nasal cannula. In stable condition.
[2019-04-13 08:00] VITALS: BP 150/83
[2019-04-13] MEDS: Lactulose 20gm/30ml UDC ORAL SCH ×2 (08:08→17:05)
[2019-04-13] MEDS: Losartan 50mg tab ORAL SCH (08:08)
[2019-04-13] MEDS: Aspirin EC 81mg tab ORAL SCH (08:09)
[2019-04-13] MEDS: Metoprolol Succinate XL 50mg tab ORAL SCH (08:10)
[2019-04-13] MEDS: Heparin 5000 units/ml inj SUBQ SCH ×2 (08:13→20:30)
[2019-04-13] MEDS: HYDROcodone/Acetamin 5/325 tab ORAL PRN ×2 (08:17→20:32)
--- NOTE | 2019-04-13 10:20 | General Progress Note ---
Assessment/Plan Problem List: (1) Pulmonary edema ICD Codes: J81.1 - Chronic pulmonary edema SNOMED: 64072804 (2) Fluid overload ICD Codes: E87.70 - Fluid overload, unspecified SNOMED: 46165381, 455697628, 261425435 (3) Missed dialysis SNOMED: 585266802 Status: stable, progressing Assessment/Plan: Hd per renal antiplt rx o2 cxr dc planning Subjective ROS Limited/Unobtainable: No Constitutional: Reports: malaise, weakness HEENT: Reports: no symptoms Cardiovascular: Reports: no symptoms Respiratory: Reports: shortness of breath Gastrointestinal/Abdominal: Reports: no symptoms Genitourinary: Reports: no symptoms Neurologic/Psychiatric: Reports: no symptoms Endocrine: Reports: no symptoms Hematologic/Lymphatic: Reports: no symptoms Allergies: Coded Allergies: PENICILLINS (Verified Allergy, Unknown, 06/20/11) All Systems: reviewed and negative except above Subjective off bipap. no CP. less sob. no fevers or chills Objective Last 24 Hour Vital Signs Date Time Temp Pulse Resp B/P (MAP) Pulse Ox O2 Delivery O2 Flow Rate FiO2 04/13/19 09:00 Nasal Cannula 2.0 04/13/19 08:47 99.1 04/13/19 08:10 106 150/83 04/13/19 08:08 150/83 04/13/19 08:08 106 150/83 04/13/19 08:00 99.1 106 20 150/83 (105) 99 04/13/19 08:00 2.0 04/13/19 07:46 91 04/13/19 07:05 98 Nasal Cannula 2.0 28 04/13/19 04:00 2.0 04/13/19 04:00 97.6 90 18 149/87 (107) 99 04/13/19 04:00 87 04/13/19 00:00 2.0 04/13/19 00:00 79 04/13/19 00:00 98.2 85 18 138/85 (102) 100 04/12/19 20:00 Nasal Cannula 2.0 04/12/19 20:00 2.0 04/12/19 20:00 98.5 77 18 143/79 (100) 99 04/12/19 20:00 78 04/12/19 18:50 99 Nasal Cannula 2.0 28 04/12/19 17:56 80 142/85 04/12/19 16:42 141/87 04/12/19 16:00 Nasal Cannula 2.0 04/12/19 16:00 2.0 04/12/19 16:00 98.8 89 18 141/87 (105) 100 04/12/19 15:58 84 04/12/19 12:00 2.0 04/12/19 12:00 Nasal Cannula 2.0 04/12/19 12:00 84 04/12/19 12:00 97.9 89 18 149/78 (101) 100 04/12/19 12:00 Nasal Cannula 2.0 04/12/19 11:15 86 149/78 04/12/19 11:15 149/78 04/12/19 11:14 86 149/78 Intake and Output 04/12/19 04/13/19 19:00 07:00 Intake Total 120 ml 90 ml Balance 120 ml 90 ml Intake Oral 120 ml 90 ml Height (Feet): 6 Height (Inches): 0.00 Weight (Pounds): 156 Objective General Appearance: WD/WN, alert Neck: supple Cardiovascular: normal rate Respiratory/Chest: rhonchi - bilaterally Abdomen: normal bowel sounds, non tender, soft, no organomegaly Edema: no edema noted Arm (L), no edema noted Arm (R), no edema noted Leg (L), no edema noted Leg (R), no edema noted Pedal (L), no edema noted Pedal (R), no edema noted Generalized Jose Luis Young MD Apr 13, 2019 10:20
--- NOTE | 2019-04-13 11:35 | Diagnostic Imaging Report ---
EXAM: XR Chest, 1 View CLINICAL HISTORY: COUGH TECHNIQUE: Frontal view of the chest. COMPARISON: No relevant prior studies available. FINDINGS: Lungs: Mildly increased interstitial markings. The lungs are otherwise clear without focal consolidation. Pleural space: Unremarkable. The costophrenic angles are sharp. No visible pneumothorax. Heart: Cardiac silhouette is magnified by the portable technique. Mediastinum: Unremarkable. Bones joints: Unremarkable. Tubes, lines and devices: Stable positioning of the dual lumen left- subclavian-approach central venous catheter. IMPRESSION: Mildly increased interstitial markings. This is nonspecific but may suggest mild pulmonary vascular congestion or a mild interstitial pneumonitis. No focal consolidation.
[2019-04-13 12:00] VITALS: BP 130/80
--- NOTE | 2019-04-13 13:30 | NUR ---
NURSE NOTES: Patient had episode of chest pain. Dr. Lara was made aware. EKG done. NTG given. EKG was read by Dr. Lara. Orders were entered.
--- NOTE | 2019-04-13 13:50 | Nephrology Progress Note ---
Assessment/Plan Problem List: (1) Gait abnormality (2) CHF exacerbation (3) ESRD (end stage renal disease) on dialysis (4) Hyperkalemia (5) Pulmonary edema (6) Missed dialysis (7) Fluid overload Plan feels better , HD 04/12 -3000 , weak and difficulty transferring and walking, needs to mobilize, fullness in chest, possible angina vs gas, given ntg, check ekg and trop, HD 04/14 Subjective Constitutional: Reports: weakness HEENT: Reports: no symptoms Genitourinary: Reports: no symptoms Neurologic/Psychiatric: Reports: no symptoms Objective Objective Last 24 Hour Vital Signs Date Time Temp Pulse Resp B/P (MAP) Pulse Ox O2 Delivery O2 Flow Rate FiO2 04/13/19 13:35 130/80 04/13/19 09:00 Nasal Cannula 2.0 04/13/19 08:47 99.1 04/13/19 08:10 106 150/83 04/13/19 08:08 150/83 04/13/19 08:08 106 150/83 04/13/19 08:00 99.1 106 20 150/83 (105) 99 04/13/19 08:00 2.0 04/13/19 07:46 91 04/13/19 07:05 98 Nasal Cannula 2.0 28 04/13/19 04:00 2.0 04/13/19 04:00 97.6 90 18 149/87 (107) 99 04/13/19 04:00 87 04/13/19 00:00 2.0 04/13/19 00:00 79 04/13/19 00:00 98.2 85 18 138/85 (102) 100 04/12/19 20:00 Nasal Cannula 2.0 04/12/19 20:00 2.0 04/12/19 20:00 98.5 77 18 143/79 (100) 99 04/12/19 20:00 78 04/12/19 18:50 99 Nasal Cannula 2.0 28 04/12/19 17:56 80 142/85 04/12/19 16:42 141/87 04/12/19 16:00 Nasal Cannula 2.0 04/12/19 16:00 2.0 04/12/19 16:00 98.8 89 18 141/87 (105) 100 04/12/19 15:58 84 Intake and Output 04/12/19 04/13/19 18:59 06:59 Intake Total 120 ml 90 ml Balance 120 ml 90 ml Intake Oral 120 ml 90 ml Height (Feet): 6 Height (Inches): 0.00 Weight (Pounds): 156 General Appearance: WD/WN, no apparent distress EENT: normal ENT inspection Neck: normal alignment Cardiovascular: normal rate Respiratory/Chest: lungs clear Abdomen: non tender Extremities: other - trace edema 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
[2019-04-13] MEDS ORDERED: Mylanta II UD 30ml ORAL SCH (14:00)
--- NOTE | 2019-04-13 14:31 | NUR ---
NURSE NOTES: Spoke with Medina from IR about HD for 04/14/19.
[2019-04-13 16:00] VITALS: BP 152/81
--- NOTE | 2019-04-13 19:25 | NUR ---
HAND-OFF: Report given to NATHALIA Benjamin.
--- NOTE | 2019-04-13 19:29 | NUR ---
NURSE NOTES: Received patient from NATHALIA Adams. Patient is awake, talkative, sitting in bed comfortably. No signs of distress noted. Patient did complain of pain, 8/10 non-radiating in chest. Patient is ambulatory. IV site checked, patent and intact, no signs of redness, infiltration, or bleeding. Patient is AOx4, and able to make needs known. Bed is in lowest position, brakes on, and call light within reach. Will continue plan of care.
[2019-04-13 20:00] VITALS: BP 157/94
[2019-04-13] MEDS ORDERED: Dyna-Hex 2% Top Sol 2oz TOPIC SCH (20:00)
[2019-04-14] VITALS: BP 139/81
--- NOTE | 2019-04-14 03:36 | NUR ---
NURSE NOTES: Patient is asleep in semi-haskins's position. No signs of distress or pain noted at this time. Will continue with plan of care.
[2019-04-14 04:00] VITALS: BP 134/79
[2019-04-14] MEDS: GlipiZIDE 5mg tab ORAL SCH (05:59)
[2019-04-14] MEDS: NovoLOG Insulin Flexpen SUBQ SCH ×2 (06:02→11:30)
--- NOTE | 2019-04-14 07:26 | NUR ---
HAND-OFF: Report given to NATHALIA Miller. Patient awake, lying in semi-haskins's position, resting comfortably. Patient in stable condition.
[2019-04-14] MEDS ORDERED: COZAAR50 MG ORAL (07:33)
[2019-04-14] MEDS ORDERED: Metoprolol Succinate ORAL (07:33)
[2019-04-14] MEDS ORDERED: NORVASC5 MG ORAL (07:33)
[2019-04-14] MEDS ORDERED: RENVELA800 MG ORAL (07:33)
[2019-04-14] MEDS ORDERED: GLIPIZIDE5 MG ORAL (07:33)
[2019-04-14] MEDS ORDERED: ASPIRIN EC81 MG ORAL (07:33)
[2019-04-14 07:35] LABS: BASOPHILS % (AUTO) 0.9 % (0.0-2.0); EOSINOPHILS % (AUTO) 3.6 % (0.0-3.0); HEMATOCRIT 29.5 % (42.0-52.0); HEMOGLOBIN 9.6 G/DL (14.2-18.0); LYMPHOCYTES % (AUTO) 24.9 % (20.0-45.0); MEAN CORPUSCULAR VOLUME 88 FL (80-99); MONOCYTES % (AUTO) 8.9 % (1.0-10.0); NEUTROPHILS % (AUTO) 61.6 % (45.0-75.0); PLATELET COUNT 186 K/UL (150-450); RED BLOOD COUNT 3.34 M/UL (4.70-6.10); RED CELL DISTRIBUTION WIDTH 12.9 % (11.6-14.8); WHITE BLOOD COUNT 6.6 K/UL (4.8-10.8)
--- NOTE | 2019-04-14 07:35 | NUR ---
NURSE NOTES: Report received from NATHALIA Benjamin. Pt is lying comfortably in semi-fowlers. Pt shows no signs of distress, A+Ox4, denies pain/SOB. Respirations are even and unlabored on 2 L NC. IV site is intact and saline locked. Bed is at lowest position, brakes engaged, siderails x2, bed alarm on, and call light within reach. Pt is in stable condition; will continue to monitor.
[2019-04-14 08:00] VITALS: BP 149/87
[2019-04-14] MEDS: Metoprolol Succinate XL 50mg tab ORAL SCH (08:05)
[2019-04-14] MEDS: Losartan 50mg tab ORAL SCH (08:05)
[2019-04-14] MEDS: Aspirin EC 81mg tab ORAL SCH (08:23)
[2019-04-14] MEDS: Lactulose 20gm/30ml UDC ORAL SCH (08:24)
[2019-04-14] MEDS: Heparin 5000 units/ml inj SUBQ SCH (08:25)
[2019-04-14] MEDS: HYDROcodone/Acetamin 5/325 tab ORAL PRN (08:26)
[2019-04-14 08:33] LABS: ANION GAP 14 mmol/L (5-15); BLOOD UREA NITROGEN 55 mg/dL (7-18); CARBON DIOXIDE 23 MMOL/L (21-32); CHLORIDE 101 MMOL/L (98-107); CREATININE 14.3 MG/DL (0.55-1.30); SODIUM 138 MMOL/L (136-145)
--- NOTE | 2019-04-14 08:49 | Cardiology Report ---
APPROVED REPORT EXAM: Two-dimensional and M-mode echocardiogram with Doppler and color Doppler. INDICATION Atrial Fibrillation M-Mode DIMENSIONS IVSd0.9 (0.7-1.1cm)Left Atrium (MM)4.0 (1.6-4.0cm) LVDd4.1 (3.5-5.6cm)Aortic Root3.1 (2.0-3.7cm) PWd1.1 (0.7-1.1cm)Aortic Cusp Exc.1.8 (1.5-2.0cm) LVDs2.7 (2.5-4.0cm) PWs1.5 cm Other Information Technically limited study due to Technically difficult study due to poor acoustical windows. Normal left ventricular chamber size, systolic function and wall motion to extent visualized. Left ventricular ejection fraction estimated to be 55 %. Mild left ventricular hypertrophy with 2D. No evidence of pericardial effusion. All other cardiac chamber sizes are within normal limits. Focal aortic valve sclerosis with adequate cusp excursion. Thickened mitral valve leaflets with normal excursion. Pulmonic valve not well visualized. Normal tricuspid valve structure. IVC at normal size without physiologic collapse. A color flow and spectral Doppler study was performed and revealed: No aortic regurgitation. Moderate mitral regurgitation. Mitral diastolic velocities suggest reduced left ventricular relaxation c/w mild LV diastolic dysfunction (Grade I ). Mild tricuspid regurgitation. Tricuspid systolic velocities suggests peak right ventricular systolic pressure of 56 mmHg, consistent with moderate pulmonary hypertension. No pulmonic regurgitation present.
--- NOTE | 2019-04-14 11:25 | NUR ---
PT EVALUATION NOTE Patient seen for initial evaluation, see complete evaluation for details. Patient presents with generalized weakness and impaired balance which affects patient's ability to perform mobility tasks and increases fall risk. Patient requires SBA/min assist for bed mobility and SBA/CGA for transfers with the use of a FWW. Gait training deferred to c/o chest pain. Patient will benefit from skilled inpatient PT intervention to address strength, balance and safety to improve level of functional mobility. Recommend home with home PT vs short term SNF for rehab once medically cleared by MD. Recommend that patient use his FWW for ambulation to decrease fall risk. Addendum: 04/14/19 at 1312 by JACKIE CHEUNG PT Amended: Links added.
[2019-04-14 12:00] VITALS: BP 139/76
--- NOTE | 2019-04-14 13:26 | NUR ---
*-* INSURANCE *-* ALL CLINICALS AND REVIEWS HAVE BEEN FAXED TO: [facility] [place]TH[place]:CECELIA F: [phone]
[2019-04-14] MEDS ORDERED: Heparin Sod 1000 units/ml 10ml IV ONE (14:00)
--- NOTE | 2019-04-14 15:40 | NUR ---
NURSE NOTES: Patient had no family or friends to pick him up. Asked if he wanted a taxi voucher and he said yes. Received a voucher for him. Printed DC paperwork. Gave patient his prescriptions and his medication from the pharmacy. Pt understood dc instructions and all his questions were answered. Pt does not complain of any more chest pain after dialysis. VSS. IV, wristband, and air sampling and monitoring removed. Pt is in stable conditin. Pt discharged safely from floor via wheelchair to taxi. Pt to be brought to his house about two miles away.
--- NOTE | 2019-04-14 15:54 | NUR ---
RD ASSESSMENT & RECOMMENDATIONS SEE CARE ACTIVITY FOR COMPLETE ASSESSMENT DAILY ESTIMATED NEEDS: Needs based on DM, HD/ 74kg 25-30 kcals/kg 8562-7081 total kcals 1.2-1.8 g protein/kg 89-133 g total protein 20-22 mL/kg 5095-8988 total fluid mLs NUTRITION DIAGNOSIS: * Increased kcal/prot intake needs R/T renal dysfunction as evidenced by ESRD dx, on HD. * Altered nutrition related lab values R/T diabetes as evidenced by A1C of 6.4. CURRENT DIET:RENAL PO DIET RECOMMENDATIONS: RENAL, CCHO MED/ texture as tolerated ADDITIONAL RECOMMENDATIONS: * Daily standing wt monitoring for accurate wts -> obtain dry wt post HD * High prot snack TID in b/w meals to help prevent hypoglycemia * Nepro x 1 (425kcal, 19g prot per ruchi) * Check phos and mag levels * Nephrovite x 1 as supplement
--- NOTE | 2019-04-14 18:31 | Cardiology Report ---
APPROVED REPORT EKG Measurement Heart [id number] Normal sinus rhythm Possible Lateral infarct, age undetermined Abnormal ECG
--- NOTE | 2019-04-14 18:37 | Cardiology Report ---
APPROVED REPORT EKG Measurement Heart [id number] ID [id number] Normal sinus rhythm Possible Lateral infarct, age undetermined Abnormal ECG
--- NOTE | 2019-04-15 11:49 | Discharge Summary ---
Discharge Summary Discharge Summary _ DATE OF ADMISSION: 04/10/2019 DATE OF DISCHARGE: 04/14/2019 DISCHARGED BY: Dr. Young REASON FOR ADMISSION: 68 years old male with past medical history of end-stage renal disease, on hemodialysis, COPD, diabetes mellitus, hypertension, high cholesterol, presented to emergency department with shortness of breath. Patient undergone AV fistula placement this week. He reported that he missed dialysis , because he was having pain at his AV fistula site. Patient denied recent illness. He denied cough or congestion. No fever or chills. Upon evaluation patient required nonrebreathing mask and was tachycardic and tachypneic. Laboratory work-up revealed mild leukocytosis WBC 12.6, hemoglobin 9.5 , hematocrit 28 , platelet count 144. Potassium 6.2. BUN 91, creatinine 20. Troponin elevated 0.175. EKG reveals sinus tachycardia, no acute ischemic changes. Chest x-ray revealed bilateral extensive patchy infiltrates versus edema. Patient received IV Lasix, since he was still making some urine. Dialysis company was contacted for emergency dialysis. Patient was placed on BiPAP due to respiratory distress . Hyperkalemia was treated with insulin, glucose, albuterol and calcium gluconate. Patient subsequently admitted to monitored floor for further management. CONSULTANTS: county sheriff Dr Lara [facility]: Patient admitted to monitored floor. Patient initially was on the BiPAP. Patient received emergency hemodialysis with close monitoring of volumes and cardiorenal parameters. Business Computers Teacher closely followed. Electrolytes were closely monitored and further corrected as needed. Prior to discharge potassium 4.0 , BUN 55 , creatinine 14.3. Second troponin trending down- 0.105 The next two troponin were negative. Echocardiogram revealed preserved ejection fraction of 65% with mild left ventricular hypertrophy. No evidence of wall motion abnormality. Right ventricular systolic pressure 56 consistent with moderate pulmonary hypertension. Repeated chest x-ray demonstrated mild pulmonary vascular congestion or a mild interstitial pneumonitis. No focal consolidation. Patient was able to be weaned from BiPAP on nasal cannula, and then was on room air. Leukocytosis was likely reactive and resolved. Hemoglobin and hematocrit were closely monitored with goal to keep hemoglobin above 7. Hemoglobin and hematocrit remained at baseline; prior to discharge hemoglobin 9.6 , hematocrit 29.5. Antiplatelet therapy with aspirin continued. Blood pressure was managed with calcium channel shahla, beta-shahla and ARB. Blood sugar was managed with glipizide. Sliding scale of insulin was on board as needed. Diabetic diet provided. DVT and GI prophylaxis provided. Renvela continued. Pain management was addressed as needed. Patient was working with physical therapist. Fall precaution maintained. Patient clinically stabilized and was ready for discharge home. Pulse oximetry stable on room air. No chest pain. Follow-up with outpatient hemodialysis as scheduled. Reinforced compliance with hemodialysis schedule and medication regimen. FINAL DIAGNOSES: Pulmonary edema Fluid overload secondary to missed hemodialysis Congestive heart failure likely, acute on chronic with diastolic dysfunction Elevated troponin, likely due to renal failure End-stage renal disease , on hemodialysis Azotemia/due to missed hemodialysis Hyperkalemia -resolved Hypertension Diabetes mellitus DISCHARGE MEDICATIONS: See Medication Reconciliation list. DISCHARGE INSTRUCTIONS: Patient was discharged home. Follow with primary care provider in a week. Follow up with outpatient hemodialysis as scheduled. I have been assigned to dictate discharge summary for this account. I was not involved in the patient's management. Nicolette Dalal NP Apr 15, 2019 11:49
--- NOTE | 2019-04-15 13:26 | NUR ---
*-* INSURANCE *-* ALL CLINICALS AND REVIEWS HAVE BEEN FAXED TO: [facility] [place]:CECELIA F: [phone]
== END 2019-04-14 15:40 | disposition home or self-care (01) | DRG 291 ==
LOC: EDBD 19:11 → EMR 19:43 → 2W 21:30 → EDBEDREQ 22:17 → 2W 23:21 → 2E 04-12 20:50
PROC: 5A09357 Assistance with Respiratory Ventilation, Less than 24 Consecutive Hours, Continuous Positive Airway Pressure (ICD-10-PCS; principal; 2019-04-10)
PROC: 5A1D70Z Performance of Urinary Filtration, Intermittent, Less than 6 Hours Per Day (ICD-10-PCS; 2019-04-11)
DX: I13.2 Hypertensive heart and chronic kidney disease with heart failure and with stage 5 chronic kidney disease, or end stage renal disease (principal); N18.6 End stage renal disease; I50.33 Acute on chronic diastolic (congestive) heart failure; I24.8 Other forms of acute ischemic heart disease; E87.79 Other fluid overload; E87.5 Hyperkalemia; E11.22 Type 2 diabetes mellitus with diabetic chronic kidney disease; Z99.2 Dependence on renal dialysis; Z91.15 Patient's noncompliance with renal dialysis; J44.9 Chronic obstructive pulmonary disease, unspecified; Z88.0 Allergy status to penicillin; R26.9 Unspecified abnormalities of gait and mobility
CPT/HCPCS: 36415; 71045; 80048; 80053; 81003; 82550; 82553; 82962; 83036; 84484; 85025; 87081; 93005; 93306; 94640; 94660; 94664; 96365; 96375; 99291; J1815; J2405

== ENCOUNTER 2019-05-29 15:15 | Emergency (ER) | payer MEDICARE, OTHER ==
[~2019-05-29] VITALS: Ht 170.2 cm; Wt 72.6 kg
[~2019-05-29 15:15] MED LIST changes: +ASPIRIN EC81 MG ORAL; +COZAAR50 MG ORAL; +GLIPIZIDE5 MG ORAL; +Metoprolol Succinate ORAL; +NORVASC5 MG ORAL; +RENVELA800 MG ORAL
[2019-05-29 15:25] VITALS: BP 145/80
--- NOTE | 2019-05-29 15:35 | Emergency Room Report ---
History of Present Illness General Chief Complaint: Allergic Reaction Source: Patient Present Illness HPI Disclaimer: Please note that this report is being documented using [employer] technology. This can lead to erroneous entry secondary to incorrect interpretation by the dictating instrument. HPI: 69-year-old male with history of ESRD on hemodialysis MWF, hypertension, hyperlipidemia presents for evaluation of facial swelling. Patient states he awoke with his bottom lip and tongue swollen. He denies any respiratory distress, throat closure sensation, swelling in the lower neck, chest pain or difficulty breathing. He is able to tolerate his secretions. Took no medication prior to arrival. States the swelling is improving. Patient reports having a similar episode sometime ago that resolved spontaneously and did not seek follow-up at that time. No new changes in his medications. Cannot recall any exposure to new foods. He is allergic to penicillin but otherwise denies any other known allergens. Denies rash or urticaria. Denies recent fever, chills, URI symptoms, cough, abdominal pain, vomiting, diarrhea. Had a full treatment of hemodialysis yesterday. PMH: ESRD on hemodialysis, hypertension, hyperlipidemia PSH: Permacath placement left chest Allergies: Penicillin Social Hx: [] Allergies: Coded Allergies: PENICILLINS (Verified Allergy, Unknown, 06/20/11) Nursing Documentation-PMH Past Medical History: No History, Except For Hx Hypertension: Yes Hx COPD: Yes Hx Diabetes: Yes Hx Cancer: No Hx Gastrointestinal Problems: No Hx Dialysis: Yes - MWF Hx Neurological Problems: No Review of Systems All Other Systems: negative except mentioned in HPI Physical Exam Vital Signs Date Time Temp Pulse Resp B/P (MAP) Pulse Ox O2 Delivery O2 Flow Rate FiO2 05/29/19 15:18 98.4 115 17 148/82 (104) 98 Room Air General: Awake and alert, no acute distress HEENT: NC/AT. EOMI. PERRLA. No conjunctival injection. There is slight edema of the lower lip and of the tongue no airway is patent, tolerating secretions, no respiratory distress, uvula is midline and not edematous. Neck: Supple, trachea midline, no swelling, no lymphadenopathy Chest Wall: No tenderness, no deformity. Permacath present in left chest Cardiovascular: RRR. S1 and S2 normal. No murmur appreciated Resp: Normal work of breathing. No cough, wheezing or crackles appreciated. No stridor Abdomen: Abdomen is soft, nondistended. Nontender Skin: Intact. No abrasions, laceration or rash over the exposed skin MSK: Normal tone and bulk. Moving all extremities. No obvious deformity. Neuro: Awake and alert. Mentating appropriately. Medical Decision Making Diagnostic Impression: Primary Impression: Lip swelling Additional Impression: Tongue swelling ER Course 69-year-old male history of hypertension and ESRD presents for evaluation of lip and tongue swelling. Differential includes but is not limited to allergic reaction, angioedema, contusion, occult trauma, electrolyte abnormality. Patient does not take OLIVIA inhibitors. This may be an idiopathic angioedema as he says he has had it in the past but improved spontaneously. Patient had hemodialysis yesterday but will repeat labs today to evaluate his electrolytes and for white count and other signs of infection. He has no respiratory compromise at this time, tolerating secretions, no distress and saturating 100% comfortably. He will be treated with cetirizine and prednisone. Monitor in the emergency department. This patient depending on reevaluation and lab findings. Laboratory Tests Test 05/29/19 16:00 White Blood Count 8.2 K/UL (4.8-10.8) Red Blood Count 3.34 M/UL (4.70-6.10) L Hemoglobin 9.8 G/DL (14.2-18.0) L Hematocrit 28.6 % (42.0-52.0) L Mean Corpuscular Volume 86 FL (80-99) Mean Corpuscular Hemoglobin 29.3 PG (27.0-31.0) Mean Corpuscular Hemoglobin Concent 34.2 G/DL (32.0-36.0) Red Cell Distribution Width 11.9 % (11.6-14.8) Platelet Count 199 K/UL (150-450) Mean Platelet Volume 7.3 FL (6.5-10.1) Neutrophils (%) (Auto) 73.2 % (45.0-75.0) Lymphocytes (%) (Auto) 16.7 % (20.0-45.0) L Monocytes (%) (Auto) 6.4 % (1.0-10.0) Eosinophils (%) (Auto) 2.1 % (0.0-3.0) Basophils (%) (Auto) 1.6 % (0.0-2.0) Sodium Level 142 MMOL/L (136-145) Potassium Level 4.6 MMOL/L (3.5-5.1) Chloride Level 102 MMOL/L (98-107) Carbon Dioxide Level 27 MMOL/L (21-32) Anion Gap 13 mmol/L (5-15) Blood Urea Nitrogen 29 mg/dL (7-18) H Creatinine 10.5 MG/DL (0.55-1.30) H Estimate Glomerular Filtration Rate 5.9 mL/min (>60) Glucose Level 173 MG/DL (74-106) H Calcium Level 9.5 MG/DL (8.5-10.1) Total Bilirubin 0.4 MG/DL (0.2-1.0) Aspartate Amino Transferase (AST) 14 U/L (15-37) L Alanine Aminotransferase (ALT) 14 U/L (12-78) Alkaline Phosphatase 80 U/L (46-116) Total Protein 8.2 G/DL (6.4-8.2) Albumin 3.6 G/DL (3.4-5.0) Globulin 4.6 g/dL Albumin/Globulin Ratio 0.8 (1.0-2.7) L Last Vital Signs Date Time Temp Pulse Resp B/P (MAP) Pulse Ox O2 Delivery O2 Flow Rate FiO2 05/29/19 15:18 98.4 115 17 148/82 (104) 98 Room Air Reevaluation Impression Labs show an elevated creatinine consistent with his end-stage renal disease but otherwise the patient's electro lites are normal including potassium. Swelling appears to be improving. Patient states he feels much better and believes the swelling will continue to go down. I discussed with him of admission to the hospital for airway monitoring though he states he prefer to follow-up as an outpatient. I called his PMD who can see him in his office tomorrow morning. The patient is reasonable and appears reliable and I believe he would return to the emergency department if his symptoms worsen. He may be discharged to follow-up as an outpatient with his PMD tomorrow though I did discuss very strict return precautions with the patient. He will be continued on cetirizine and prednisone. He understands and agrees with this treatment plan. Disposition: HOME, SELF-CARE Condition: Improved Scripts Prednisone* (PREDNISONE*) 20 Mg Tablet 40 MG ORAL DAILY for 5 Days, #10 TAB Prov: Shai Danielson MD 05/29/19 Cetirizine Hcl* (ZYRTEC*) 10 Mg Tablet 20 MG ORAL BID for 5 Days, #20 TAB 0 Refills Prov: Shai Danielson MD 05/29/19 Shai Danielson MD May 29, 2019 15:35
--- NOTE | 2019-05-29 15:40 | NUR ---
ED Nurse Note: Patient walked in to ER from home due to facial swelling. Patient states he woke up with swollen tongue and lips. Patient is allergic to penicilins, denies taking any new medications or food recently. Patient is awake, aox4. Patient denies any pain or SOB. Patient on HD, MWF. 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
[2019-05-29] MEDS ORDERED: JOINT SUPPORT1 EACH PO (15:55)
[2019-05-29] MEDS ORDERED: CALCIUM ACETAT667 M1 PO (15:55)
[2019-05-29] MEDS ORDERED: METOPROLOL TART50 M1 ORAL (15:55)
[2019-05-29] MEDS ORDERED: SENSIPAR30 MG ORAL (15:55)
[2019-05-29] MEDS ORDERED: TERAZOSIN HCL1 MG ORAL (15:55)
[2019-05-29] MEDS ORDERED: LIPITOR80 MG ORAL (15:55)
[2019-05-29] MEDS ORDERED: PROAIR HFA8.5 GM INH (15:55)
[2019-05-29] MEDS ORDERED: GLYBURIDE5 MG PO (16:01)
[2019-05-29] MEDS ORDERED: AMLODIPINE BESY10 MG ORAL (16:01)
[2019-05-29 16:15] LABS: BASOPHILS % (AUTO) 1.6 % (0.0-2.0); EOSINOPHILS % (AUTO) 2.1 % (0.0-3.0); HEMATOCRIT 28.6 % (42.0-52.0); HEMOGLOBIN 9.8 G/DL (14.2-18.0); LYMPHOCYTES % (AUTO) 16.7 % (20.0-45.0); MEAN CORPUSCULAR VOLUME 86 FL (80-99); MONOCYTES % (AUTO) 6.4 % (1.0-10.0); NEUTROPHILS % (AUTO) 73.2 % (45.0-75.0); PLATELET COUNT 199 K/UL (150-450); RED BLOOD COUNT 3.34 M/UL (4.70-6.10); RED CELL DISTRIBUTION WIDTH 11.9 % (11.6-14.8); WHITE BLOOD COUNT 8.2 K/UL (4.8-10.8)
[2019-05-29 16:33] LABS: ANION GAP 13 mmol/L (5-15); BLOOD UREA NITROGEN 29 mg/dL (7-18); CALCIUM 9.5 MG/DL (8.5-10.1); CARBON DIOXIDE 27 MMOL/L (21-32); CHLORIDE 102 MMOL/L (98-107); CREATININE 10.5 MG/DL (0.55-1.30); POTASSIUM 4.6 MMOL/L (3.5-5.1); SODIUM 142 MMOL/L (136-145)
[2019-05-29 16:37] LABS: ALANINE AMINOTRANSFERASE 14 U/L (12-78); ALBUMIN 3.6 G/DL (3.4-5.0); ALBUMIN/GLOBULIN RATIO 0.8 (1.0-2.7); ALKALINE PHOSPHATASE 80 U/L (46-116); ASPARTATE AMINO TRANSFERASE 14 U/L (15-37); BILIRUBIN,TOTAL 0.4 MG/DL (0.2-1.0)
[2019-05-29] MEDS ORDERED: PREDNISONE20 MG ORAL (17:26)
[2019-05-29] MEDS ORDERED: ZYRTEC10 MG ORAL (17:26)
[2019-05-29 17:42] VITALS: BP 160/89
--- NOTE | 2019-05-29 17:44 | NUR ---
ER DISCHARGE NOTE: Patient is cleared to be discharged per ERMD, pt is aox4, on room air, with stable vital signs. pt was given dc and prescription instructions, pt was able to verbalize understanding, pt id band and iv site removed without complications. pt is able to ambulate with steady gait. pt took all belongings.
== END 2019-05-29 17:44 | disposition home or self-care (01) ==
LOC: EMR 16:35
DX: R22.0 Localized swelling, mass and lump, head (principal); E11.22 Type 2 diabetes mellitus with diabetic chronic kidney disease; I12.0 Hypertensive chronic kidney disease with stage 5 chronic kidney disease or end stage renal disease; N18.6 End stage renal disease; Z99.2 Dependence on renal dialysis; J44.9 Chronic obstructive pulmonary disease, unspecified; Z88.0 Allergy status to penicillin; I10 Essential (primary) hypertension; E78.5 Hyperlipidemia, unspecified
CPT/HCPCS: 36415; 80053; 85025; 99283; J7512

== ENCOUNTER 2019-06-30 12:19 | Emergency (ER) | payer MEDICARE ==
[~2019-06-30] VITALS: Ht 170.2 cm; Wt 74.8 kg
[~2019-06-30 12:19] MED LIST changes: +AMLODIPINE BESY10 MG ORAL; +CALCIUM ACETAT667 M1 PO; +GLYBURIDE5 MG PO; +JOINT SUPPORT1 EACH PO; +LIPITOR80 MG ORAL; +METOPROLOL TART50 M1 ORAL; +PREDNISONE20 MG ORAL; +PROAIR HFA8.5 GM INH; +SENSIPAR30 MG ORAL; +TERAZOSIN HCL1 MG ORAL; +ZYRTEC10 MG ORAL
--- NOTE | 2019-06-30 12:40 | NUR ---
ED Nurse Note: Patient walked in from home d/t generalized weakness and blurry vision. Per patient, pt missed two days of dialysis, last sunday and today. Patient aao x 4 and ambulatory with cane. Patient c/o 2/10 right arm pain d/t previous history of fracture. Patient changed into gown and placed onto panel monitor. No acute distress noted during assessment.
[2019-06-30 12:50] VITALS: BP 161/82
--- NOTE | 2019-06-30 13:00 | NUR ---
ED Nurse Note: Attempted to start IV on right arm and was unable to, lab contacted regarding blood draw.
[2019-06-30 13:47] LABS: HEMATOCRIT 23.1 % (42.0-52.0); HEMOGLOBIN 7.4 G/DL (14.2-18.0); MEAN CORPUSCULAR VOLUME 91 FL (80-99); PLATELET COUNT 145 K/UL (150-450); RED BLOOD COUNT 2.54 M/UL (4.70-6.10); RED CELL DISTRIBUTION WIDTH 13.6 % (11.6-14.8); WHITE BLOOD COUNT 8.2 K/UL (4.8-10.8)
--- NOTE | 2019-06-30 13:59 | Emergency Room Report ---
History of Present Illness General Chief Complaint: Generalized Weakness Source: Patient Present Illness HPI This patient states that he missed dialysis twice. He states he is supposed to go Sunday, Sunday, Sunday. He states that he missed Sunday because he was not feeling great and he missed today for the same reason. He denies specific symptoms. He denies fever or chills. He denies nausea or vomiting. He denies chest pain or shortness of breath. He denies abdominal pain. He denies cough or congestion. He denies sore throat. He states he also noted some intermittent blurry vision over the past 24 hours. He denies blurry vision currently. He denies headache. He denies neck pain. He has no other complaints. Allergies: Coded Allergies: PENICILLINS (Verified Allergy, Unknown, 06/20/11) Patient History Past Medical History: see triage record, DM, HTN, CAD, COPD, renal disease, dialysis Social History: Denies: smoking, alcohol use, drug use Reviewed Nursing Documentation: PMH: Agreed; PSxH: Agreed Nursing Documentation-PMH Past Medical History: No History, Except For Hx Hypertension: Yes Hx COPD: Yes Hx Diabetes: Yes Hx Cancer: No Hx Gastrointestinal Problems: No Hx Dialysis: Yes - SHUNT ON LEFT CHEST . DAYS M// Hx Neurological Problems: No Review of Systems All Other Systems: negative except mentioned in HPI Physical Exam Vital Signs Date Time Temp Pulse Resp B/P (MAP) Pulse Ox O2 Delivery O2 Flow Rate FiO2 06/30/19 12:24 97.5 109 22 165/80 (108) 96 Room Air Sp02 EP Interpretation: reviewed, normal General Appearance: no apparent distress, alert, GCS 15, non-toxic Head: normocephalic, atraumatic Eyes: bilateral eye normal inspection, bilateral eye PERRL ENT: hearing grossly normal, normal pharynx, no angioedema, normal voice Neck: full range of motion, supple/symm/no masses Respiratory: chest non-tender, lungs clear, normal breath sounds, no respiratory distress, no retraction, no accessory muscle use, speaking full sentences Cardiovascular #1: regular rate, rhythm, no edema Gastrointestinal: normal bowel sounds, non tender, soft, non-distended, no guarding, no rebound Rectal: deferred Musculoskeletal: back normal, normal range of motion, gait/station normal, non- tender Neurologic: alert, motor strength/tone normal, oriented x3, sensory intact, responsive, speech normal Psychiatric: judgement/insight normal, memory normal, mood/affect normal, no suicidal/homicidal ideation Skin: no rash, normal color Medical Decision Making Diagnostic Impression: Primary Impression: ESRD (end stage renal disease) on dialysis Additional Impressions: Noncompliance of patient with renal dialysis Anemia ER Course This patient missed dialysis and needs dialysis. He is also mildly hyperkalemic and anemic. He is admitted for dialysis and blood transfusion. He remained stable in the emergency department without arrhythmia and with normal vital signs. Laboratory Tests Test 06/30/19 13:30 White Blood Count 8.2 K/UL (4.8-10.8) Red Blood Count 2.54 M/UL (4.70-6.10) L Hemoglobin 7.4 G/DL (14.2-18.0) L Hematocrit 23.1 % (42.0-52.0) L Mean Corpuscular Volume 91 FL (80-99) Mean Corpuscular Hemoglobin 29.1 PG (27.0-31.0) Mean Corpuscular Hemoglobin Concent 32.0 G/DL (32.0-36.0) Red Cell Distribution Width 13.6 % (11.6-14.8) Platelet Count 145 K/UL (150-450) L Mean Platelet Volume 7.6 FL (6.5-10.1) Neutrophils (%) (Auto) % (45.0-75.0) Lymphocytes (%) (Auto) % (20.0-45.0) Monocytes (%) (Auto) % (1.0-10.0) Eosinophils (%) (Auto) % (0.0-3.0) Basophils (%) (Auto) % (0.0-2.0) Neutrophils % (Manual) Pending Lymphocytes % (Manual) Pending Platelet Estimate Pending Platelet Morphology Pending Sodium Level 144 MMOL/L (136-145) Potassium Level 5.4 MMOL/L (3.5-5.1) H Chloride Level 106 MMOL/L (98-107) Carbon Dioxide Level 24 MMOL/L (21-32) Anion Gap 15 mmol/L (5-15) Blood Urea Nitrogen 81 mg/dL (7-18) H Creatinine 16.9 MG/DL (0.55-1.30) H Estimate Glomerular Filtration Rate 3.4 mL/min (>60) Glucose Level 174 MG/DL (74-106) H Calcium Level 8.3 MG/DL (8.5-10.1) L Total Bilirubin Pending Aspartate Amino Transferase (AST) Pending Alanine Aminotransferase (ALT) Pending Alkaline Phosphatase Pending Total Protein Pending Albumin Pending Globulin Pending EKG Diagnostic Results Rate: normal Rhythm: NSR ST Segments: other - Peaked T-waves Rhythm Strip Diag. Results EP Interpretation: yes Rate: 90's Rhythm: NSR, no PVC's, no ectopy Last Vital Signs Date Time Temp Pulse Resp B/P (MAP) Pulse Ox O2 Delivery O2 Flow Rate FiO2 06/30/19 12:50 97.3 104 20 161/82 97 Room Air Disposition: ADMITTED INPATIENT Condition: Serious Referrals: Marques Calhoun MD (PCP) Guera Chaney DO Jun 30, 2019 13:59
[2019-06-30 14:00] LABS: ANION GAP 15 mmol/L (5-15); BLOOD UREA NITROGEN 81 mg/dL (7-18); CALCIUM 8.3 MG/DL (8.5-10.1); CARBON DIOXIDE 24 MMOL/L (21-32); CHLORIDE 106 MMOL/L (98-107); CREATININE 16.9 MG/DL (0.55-1.30); POTASSIUM 5.4 MMOL/L (3.5-5.1); SODIUM 144 MMOL/L (136-145)
[2019-06-30 14:05] LABS: ALANINE AMINOTRANSFERASE 23 U/L (12-78); ALBUMIN 3.4 G/DL (3.4-5.0); ALBUMIN/GLOBULIN RATIO 0.9 (1.0-2.7); ALKALINE PHOSPHATASE 93 U/L (46-116); ASPARTATE AMINO TRANSFERASE 11 U/L (15-37); BILIRUBIN,TOTAL 0.3 MG/DL (0.2-1.0)
--- NOTE | 2019-06-30 14:25 | NUR ---
ED Nurse Note: Type and screen blood draw sent to lab.
--- NOTE | 2019-06-30 14:35 | NUR ---
ED Nurse Note: Blood transfusion consent form filled out and signed.
--- NOTE | 2019-06-30 15:30 | NUR ---
ED Nurse Note: Per Sandy, charge master analyst, ambulance will be here for transfer around 1600 and hold blood transfusion at this time. Patient remains asymptomatic. Patient awake, alert, oriented x 4. Regular, unlabored breathing noted.
--- NOTE | 2019-06-30 16:29 | NUR ---
ED Nurse Note: Report given to NATHALIA Barr at [facility].
[2019-06-30 17:00] VITALS: BP 151/85
--- NOTE | 2019-06-30 17:00 | NUR ---
ER DISCHARGE NOTE: Patient cleared for transfer per ERMD. Patient was transported via [facility] in stable condition. Patient aao x 4 and ambulatory with cane. Report given to EMS and informed of bed number and nurse for [facility]. IV intact upon transfer. Patient stable upon departure.
--- NOTE | 2019-07-01 13:07 | Cardiology Report ---
APPROVED REPORT EKG Measurement Heart [id number] Normal sinus rhythm Normal ECG
== END 2019-06-30 17:00 | disposition short-term general hospital (02) ==
LOC: EMR 12:41 → EDBEDREQ 14:10 → EMR 17:00
DX: I12.0 Hypertensive chronic kidney disease with stage 5 chronic kidney disease or end stage renal disease (principal); E11.22 Type 2 diabetes mellitus with diabetic chronic kidney disease; N18.6 End stage renal disease; Z99.2 Dependence on renal dialysis; J44.9 Chronic obstructive pulmonary disease, unspecified; Z91.15 Patient's noncompliance with renal dialysis; D63.1 Anemia in chronic kidney disease; E87.5 Hyperkalemia
CPT/HCPCS: 36415; 80053; 85007; 85025; 86850; 86900; 86901; 86920; 93005; 99284